=== PATIENT | female | born 2000 | race African-American/Black ===

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

== ENCOUNTER 2019-12-20 09:53 | Outpatient (CLI) | payer OTHER ==
--- NOTE | 2019-12-20 10:58 | ULT ---
OB ULTRASOUND: HISTORY: anatomy FINDINGS: A single live intrauterine gestation is seen with measurements corresponding to an estimated gestatio nal age of 21 weeks 3 daysand LUHTER at 04/28/2020. The estimated weight measures 402 g or 14 ounces (52% by Hadlock criteria). biometry: BPD: 5.22 cm, 21 weeks 6 days HC: 18.70 cm, 21 weeks 1 day AC: 16.26 cm, 20 weeks 3 days FL: 3.45 cm, 21 weeks 0 days heart rate: 140bpm Placenta: Anterior Placenta previa: No CARMELLA: 12.1cm Cervical length: 3.3cm A three-vessel cord, cord insertion, kidneys, urinary bladder, stomach, 4 chambered heart, late ral ventricles, cerebellum, spine, lips/nose, upper and lower extremities are visualized. No definite anomalies are seen. IMPRESSION: Single live intrauterine gestation of 21 weeks 3 daysestimated gestational age and LUTHER at 04/28/2020
== END 2019-12-20 09:54 | disposition home or self-care (01) ==
LOC: BICULT 09:53
PROVIDERS: ATTEND Family Medicine
DX: O09.892 Supervision of other high risk pregnancies, second trimester (principal); Z3A.21 21 weeks gestation of pregnancy
CPT/HCPCS: 76805

== ENCOUNTER 2020-04-08 14:51 | Inpatient (IN) | payer OTHER ==
--- NOTE | 2020-04-08 15:12 | PDOC.FPROB ---
FMR OB H&P: HPI - History of Present Illness Chief Complaint: elevated BP Indentification: 19F @ 36.5wga by LMP c/w 21.3wk sono History of Present Illness: Patient is a 19F @ 36.5wga by LMP c/w 21.3wk sono that presents from clinic for elevated BP. LUTHER 05/01/20 PCP: Monica Patient had a routine office visit at [facility] today for obstetric care. She was found to have a blood pressure of 139/93. She did not have s/sx of pre-e so she was sent home to re-check her BP at home. BP at home 147/91. Dr. Art was notified and asked her to come to the hospital for pre-e workup. She denies GONZALEZ, RUQ pain, abdominal pain, vision changes, dyspnea, chest pain, VD, VB, CTX, LOF. Endorses FM. Endorses minimal hand/feet swelling. Primary Care Physician: Lamar FMR OB H&P: Current - Care : 1 Para: 0 Gestational age: 36.5 Due date: 05/01/20 Dating Criteria: LMP c/w 21.3wk sono Course/Complications: Anemia of on oral iron 09/24/19: 10.4/32.4 02/17/20: 8.8/27.9 03/02/20: 9.4/28.6 04/02/20: 9.5/28.8 Depression -was on sertraline previously Seasonal allergies -was on cetirizine previously Mild intermittent asthma Obesity - OB Labs Blood type: O RH: positive Antibody Screen: negative HIV: negative RPR: negative HepBsAg: negative Rubella: immune Urine drug screen: positive (cannabinoids september 2019, repeat UDS neg) Gonorrhea: negative Chlamydia: negative 1 hour gtt: 95 GBS: unknown H&H: 9.5/28.8 - Anatomy Survey Anatomy survey: Performed at 21.3wga with no abnormalities seen. Anterior placenta. No placenta previa seen. - Additional Ultrasound Additional: 35wk growth sono for obesity in : Hadlock 57.1%, CARMELLA 17 FMR OB H&P: History - Past Medical History PMH: Depression Seasonal allergies Mild intermittent asthma Obesity - OB History OB History: Prior patient of Dr. Chappell, was transferred at 31.6wga. Has gained 8lbs since that time. - Surgical History Sx History: None - Social History Social History: Non-smoker No alcohol use +UDS for cannabinoids September 2019, repeat negative FMR OB H&P: Medications - Current Home Medications: Medication Instructions Recorded Confirmed Type Iron 1 tablet PO DAILY 04/08/20 04/08/20 History Vits96/Iron Fum/Folic 1 tablet PO DAILY 04/08/20 04/08/20 History [ Tablet] Allergies/Adverse Reactions: Allergies Allergy/AdvReac Type Severity Reaction Status Date / Time No Known Drug Allergies Allergy Verified 04/08/20 15:26 FMR OB H&P: ROS - Review of Systems General: denies: fever/chills, weight/appetite/sleep changes Eyes: denies: eye pain, vision changes ENT: denies: nasal congestion, rhinorrhea Cardiovascular: reports: edema (mild hands/feet). denies: chest pain, palpitation Respiratory: denies: cough, shortness of breath Gastrointestinal: denies: abdominal pain, diarrhea, constipation Genitourinary (Female): denies: incontinence, dysuria, vaginal discharge, vaginal pain, vaginal bleeding Musculoskeletal: denies: pain, stiffness, tenderness Neurologic: denies: numbness, syncope, seizures Integumentary: denies: itching, rash Breast: denies: lumps, bumps Endocrine: denies: cold intolerance, heat intolerance Hematologic/Lymphatic: denies: prolonged or excessive bleeding, enlarged lymph nodes FMR OB H&P: Vital Signs - Maternal Vital signs: 139/90 FMR OB H&P: Physical Exam - Physical Exam General: NAD, awake, alert and oriented HEENT: normocephalic and atraumatic, EOMI, MMM Neck: supple, FROM, trachea midline Chest: non-tender to palpation Breast: symmetric, non-tender Heart: RRR, normal S1/S2, other (trace edema BLE) General: CTAB, no respiratory distress Abdomen: soft, gravid, fundus(cm) Musculoskeletal: normal gait and station, pulses present, FROM in all four extremities Neurological: cranial nerves II through XII intact, sensation to pain,touch and proprioception grossly normal Skin: no rash, good tugor Lymphatic: no unusual bruising or bleeding, no purpura Psychiatric: intact recent and remote memory, good judgement and insight FMR OB H&P: A/P Disposition: Patient is a 19F @ 36.5wga by LMP c/w 21.3wk chi that presents as a triage from clinic for pre-eclampsia work up. #Elevate BP -had elevated BP in clinic and at home, 140s/90s without any severe pressures -trace edema BLE, no other pre-symptoms or signs -monitored BP while in triage, elevated pressures with one >160 but patient was laying on the BP cuff. Repeat BP was 157/97. Will continue to monitor BP for 4 hours. -pre-e labs: prot:creat 0.2, platelets 128 (139 on 04/02), AST/ALT and cr wnl. -FHT cat 1 #Anemia of on oral iron 09/24/19: 10.4/32.4 02/17/20: 8.8/27.9 03/02/20: 9.4/28.6 04/02/20: 9.5/28.8 -patient taking oral iron -PCP tried to [facility] iron infusion today, was unsuccessful. If patient stays overnight will davis for iron infusion otherwise will notify PCP to try again to schedule her in am #Depression -was on sertraline previously, not currently using -aware #Seasonal allergies -was on cetirizine previously, controlled without medication currently #Mild intermittent asthma -controlled, not using inhalers -will avoid hemabate during delivery #Obesity -aware Dispo: monitor BP for total of 4 hours. Communicate with PCP, Dr. Art, regarding status of iron infusion, and necessity of weekly mBPP/NST if discharged Discussion: Date/Time: 04/08/20 [id number] This H&P was discussed with [Twan] and [] who agree with the above documentation and plan. Signature: MD Teetee PGY-2
[2020-04-08 15:32] VITALS: BMI 39.2
[2020-04-08 16:29] LABS: Creatinine, Urine 381.91 mg/dL (47-110)
[2020-04-08 16:38] LABS: #Lymphocytes 0.9 thou/uL (1.20-3.40); #Monocytes 0.4 thou/uL (0.11-0.59); #Neutrophils 4.2 thou/uL (1.40-6.50); %Basophils 0.3 % (0.0-1.0); %Eosinophils 0.4 % (0.0-10.0); %Lymphocytes 16.2 % (28.0-48.0); %Monocytes 6.3 % (0.0-4.0); %Neutrophils 76.9 % (31.0-61.0); Hemoglobin 10.2 g/dL (12.0-16.0); Mean Corpuscular HGB CONC 32.7 g/dL (32.0-36.0); Mean Corpuscular Hemoglobin 28.5 pg (25.0-35.0); Mean Corpuscular Volume 86.9 fL (78.0-98.0); Mean Platelet Volume 9.7 fL (7.4-10.4); Platelet Count 128 thou/uL (130-400); RBC Distribution Width 13.9 % (11.5-14.5); Red Blood Cell (RBC) Count 3.58 mill/uL (4.00-5.20); White Blood Cell (WBC) Count 5.5 thou/uL (4.8-10.8)
[2020-04-08 17:03] LABS: ALT (SGPT) 12 U/L (8-55); AST (SGOT) 21 U/L (5-34); Albumin 3.2 g/dL (3.5-5.0); Alkaline Phosphatase 177 U/L (40-100); Anion Gap 13 mmol/L (10-20); BUN (Urea Nitrogen) 6 mg/dL (7.0-18.7); Bilirubin, Total 0.3 mg/dL (0.2-1.2); Calc. Creatinine Clearance 223 mL/min (70-130); Calcium 8.6 mg/dL (7.8-10.44); Carbon Dioxide 21 mmol/L (22-29); Chloride 106 mmol/L (98-107); Globulin 3.6 g/dL (2.4-3.5); Glucose 90 mg/dL (70-105); Potassium 3.8 mmol/L (3.5-5.1); Protein, Total 6.8 g/dL (6.0-8.3); Sodium 136 mmol/L (136-145); Uric Acid 4.9 mg/dL (2.6-6.0)
[2020-04-08] MEDS: hydrALAZINE 20 MG/ML VIAL ONE ×2 (17:55→18:37)
[2020-04-08] MEDS ORDERED: hydrALAZINE 20 MG/ML VIAL SLOW IVP PRN ×2 (17:55→18:11)
[2020-04-08] MEDS ORDERED: Promethazine HCl 25 MG/ML VIAL IM PRN (18:11)
[2020-04-08] MEDS ORDERED: Ondansetron PF 4 MG/2 ML Vial IVP PRN (18:11)
--- NOTE | 2020-04-08 18:24 | PDOC.BPN ---
<Ebonie Taylor - Last Filed: 04/08/20 18:55> - Brief Progress Note Encounter Date: 04/08/20 Encounter Time: 18:17 S: Pt seen at bedside after being paged about patient's severe range BPs. Her BP was 167/102 @ 1707 and 163/97 @ 1731. Hydralyzine 5mg given at 17:55. Patient denied CP/SOB, vision changes/scotomas, RUQ pain, N/V at this time. O: Vitals: 178/97, HR 104 @ 18:11 PE: General: NAD Heart: RRR, no m/r/g noted CTAB: clear to auscultation, no wheezes, rhonchi/rales noted Extremities: mild pitting edema noted A/P: Labs upon admission reviewed. Thrombocytopenia noted @ 128. ALT/AST wnl. Uric Acid 4.9, high normal. Urine protein/tire mechanic ratio was 0.196. Since spiked severe range BPs, will admit for observation overnight and continue to monitor BPs closely. BPP and growth u/s ordered. AM labs CBC, CMP, and uric acid ordered. 24 hour urine protein to begin collecting. GBS swab ordered as well. 10 mg IVP hydralyzine ordered now. Checking BP q15 minutes. Discussed plan with Dr. White and Dr. Bennett. <Janae White - Last Filed: 04/09/20 18:43> - Brief Progress Note Currently dx with gHTN. Due to GA of 36.5 wks not an indication for delivery. However, now noted to have severe range BP but only 1 hour apart. Treated. Will admit and obs. If continues with mag and induce due to gHTN with severe range BP. Discussed with NICU team, will hold steroids due to late state. Justin
[2020-04-08] MEDS ORDERED: hydrALAZINE 20 MG/ML VIAL SLOW IVP SCH (18:45)
--- NOTE | 2020-04-08 19:17 | ULT ---
Please see Limited OB ultrasound also obtained on 04/08/2020 for further details.
--- NOTE | 2020-04-08 19:17 | ULT ---
EXAM: Limited OB ultrasound Ultrasound biophysical profile COMPARISON: 12/20/2019 HISTORY: Positive . Severe range of blood pressures. Evaluate for growth. TECHNIQUE: Multiplanar grayscale and color Doppler transabdominal sonographic images are obtained. FINDINGS: There is a single intrauterine gestation in cephalic presentation. Cardiac Doppler demonstr ates heart tones with a heart rate of 135 beats per minute. The placenta is located anteriorly without evidence of placenta previa. There is a normal amount of amniotic fluid with an am niotic fluid index of 12.5 centimeters. The cervix is obscured due to shadowing from head. biometry measurements: BPD 9.35 cm -- 38 weeks HC 32.94 cm -- 37 weeks 3 days AC 32.69 cm -- 36 weeks 4 days FL 7.11 cm -- 36 weeks 3 days The estimated gestational age by ultrasound is 37 weeks 1 day with LUTHER on 04/28/2020. Gestational age by the last menstrual period is 36 weeks 5 days. The estimated weight by ultrasound is 3040 g (6 pounds, 11 ounces). This represents 58 percenti le for weight. There has been interval growth when compared to prior study on 12/20/2019. The anatomical structures were not evaluated on this examination. A score of 2 was obtained each for tone, breathing, movements, and amniotic fluid v olume. IMPRESSION: 1. Single intrauterine gestation in cephalic presentation with heart tones documented. Estimat ed gestational age by ultrasound is 37 weeks 1 day with LUTHER on 04/28/2020. 2. Estimated weight is 3040 g (6 pounds, 11 ounces). 3. Amniotic fluid index is 12.5 centimeters. 4. A total biophysical profile score of 8 out of 8 was obtained.
[2020-04-08] MEDS ORDERED: Magnesium Sulfate 20 gm/500 ml 20 GM/500 ML BAG ONE (19:51)
[2020-04-08] MEDS ORDERED: Lidocaine 1% (PF) 30 ML VIAL SC PRN (19:52)
[2020-04-08] MEDS ORDERED: NS / Oxytocin 40 units/1000ml 1,000 ML IV PRN ×2 (19:52→19:54)
[2020-04-08] MEDS ORDERED: Calcium Gluc 4.6 MEQ/10 ML (100 MG/ML) SLOW IVP PRN (19:53)
[2020-04-08] MEDS ORDERED: Labetalol HCl 100 MG/20 ML VIAL SLOW IVP SCH (20:00)
[2020-04-08] MEDS ORDERED: Magnesium Sulfate 20 GM/WATER 500 ML BAG IVPB SCH (20:00)
[2020-04-08] MEDS ORDERED: Penicillin G Potassium 5 MILL.UNITS in Sodium Chloride 0.9% 100 ML IVPB SCH (20:00)
[2020-04-08] MEDS ORDERED: Magnesium Sulfate 20 gm/500 ml 20 GM/500 ML BAG IVPB SCH (20:00)
[2020-04-08] MEDS ORDERED: NS w/ Oxytocin 30 units 500 ML IVPB SCH (20:02)
[2020-04-08] MEDS ORDERED: NS w/ Oxytocin 30 units 500 ML IVPB PRN (20:03)
--- NOTE | 2020-04-08 20:19 | PDOC.BPN ---
<Ebonie Taylor - Last Filed: 04/08/20 20:46> - Brief Progress Note Encounter Date: 04/08/20 Encounter Time: 20:18 S: Pt continues to have elevated BPs was paged ~19:50 that patient's BP was 167/91 and was c/o GONZALEZ and SOB. Now, after eating some food, these sxs have resolved. O: BP 177/85, HR 115 SVE c/th/h @ 20:10 A/P: As BPs continue to be in the severe range, will admit for induction of labor. Explanation of process and questions answered. -SVE c/th/h @ 20:10, will start with cytotec as induction agent, u/s reviewed, fetus is cephalic in presentation -magnesium started, will do q4H mag checks -GBS ppx started as patient as swabbed at clinic today and we will not know results -does desire epidural -labetalol 20mg ordered now, continue to monitor BPs closely -will stop 24H urine protein collection <Janae White - Last Filed: 04/09/20 18:49> - Brief Progress Note Admit. Start mag. Treat BP. Unfavorable cervix. Induce with miso. Reactive NST. US images reviewed. Appropriate EFW and CARMELLA. Cephalic. Anterior placenta. Justin
[2020-04-08] MEDS: Misoprostol 100 MCG TAB VAG SCH (20:31)
[2020-04-09] MEDS ORDERED: Labetalol HCl 100 MG/20 ML VIAL SLOW IVP SCH (00:45)
--- NOTE | 2020-04-09 00:59 | PDOC.BPN ---
<BrandonEbonie - Last Filed: 04/09/20 03:44> - Brief Progress Note Encounter Date: 04/09/20 Encounter Time: 00:59 S: Patient seen at bedside. States that she is feeling contractions now. Denies GONZALEZ, vision changes, CP/SOB, RUQ pain O: BP 153/69 HR 110 PE: General: NAD Heart: RRR, no m/r/g Lungs: CTAB Extremities: mild pitting edema persists, unchanged from prior exam Neuro: DTRs 2+ in lower extremities FHT: FHR 140s, moderate variability noted, accels noted, no ctx seen on strip but patient feeling them every 5-10 mins at the moment SVE: 03/30/-3 @ 00:47 A/P: -s/p 1 dose of cytotec @ 20:45 -two severe BPs noted in SBP 160-170 range in 4 hour time period -s/p 15 mg hydralyzine and 20mg labetalol -continue with magnesium -U/O 350 ml in 4 hours -will place another cytotec and will recheck in 4 hours -ordered another dose of labetalol 20mg IVP at this time Plan discussed with Dr. White and Dr. Bennett <Janae White - Last Filed: 04/09/20 19:44> - Brief Progress Note Continue current plan. Continue induction with miso. Treat BPs as needed. Consider oral labetolol if prn meds are continued again. Justin
[2020-04-09] MEDS: Misoprostol 100 MCG TAB VAG SCH ×3 (01:06→09:04)
--- NOTE | 2020-04-09 05:09 | PDOC.BPN ---
<BrandonEbonie - Last Filed: 04/09/20 05:33> - Brief Progress Note Encounter Date: 04/09/20 Encounter Time: 05:01 S: Patient seen at bedside. Denies GONZALEZ, vision changes, CP/SOB, RUQ pain O: BP 134/80 HR 108 PE: General: NAD Heart: RRR, no m/r/g Lungs: CTAB Extremities: mild pitting edema persists, unchanged from prior exam Neuro: DTRs 2+ in lower extremities FHT: FHR 140s, moderate variability noted, accels noted, no ctx seen on strip SVE: 03/30/-3 @ 00:47 SVE: 1.5/50/-3 @ 05:00 A/P: -s/p 1st dose of cytotec @ 20:45, 2nd dose of cytotec @ 0104 -no severe range BPs during 4 hour time period -s/p 15 mg hydralyzine and 40mg labetalol so far -continue with magnesium -U/O 375 ml in last 4 hours -will place another cytotec and will recheck in 4 hours Plan discussed with Dr. White and Dr. Bennett <Janae White - Last Filed: 04/09/20 20:12> - Brief Progress Note Cervix still unfavorable, continue miso. CAt 1 tracing. Patient tolerating well. Justin
[2020-04-09 07:21] LABS: SARS-CoV-2 PCR by NAA DETECTED (NotDetected)
[2020-04-09] MEDS ORDERED: FLU VACC QS2020-21(6MOS UP)/PF 60 MCG/0.5 ML SYRINGE IM ONE (09:00)
[2020-04-09] MEDS: Penicillin G 2.5 MILL.units 2.5 MILL.UNITS in Premix Bag 1 BAG IVPB SCH ×2 (09:03→13:18)
[2020-04-09] MEDS ORDERED: Labetalol HCl 100 MG/20 ML VIAL SLOW IVP PRN ×2 (09:54→17:57)
--- NOTE | 2020-04-09 09:59 | PDOC.LDPN ---
Labor & Delivery Progress Note - Subjective Subjective: comfortable - Objective Abnormal vital signs: elevated blood pressure, one severe range 162/101 General: NAD, resting FHT: category 1, variability present -: sIUP, mIOL for severe gHTN - 36.6 wga - on Mg for severe HTN - tx PRN severe range BP >160/110, one severe range pressure in past several hours - UOP, reflexes adequate, continue to monitor Mg check q4hr - last SVE /-2 per nursing @ 0905, cytotec #4 placed - continue FHT monitoring, cat 1 strip with intermittent periods decreased variability COVID positive Asymptomatic. Transferred to negative pressure room. Precautions initiated. Will recheck SVE in 4 hours from last SVE. windy ralph, DO, PGY-1 To be discussed with Dr. Arredondo.
[2020-04-09 10:37] LABS: ALT (SGPT) 12 U/L (8-55); AST (SGOT) 19 U/L (5-34); Alkaline Phosphatase 183 U/L (40-100); Anion Gap 14 mmol/L (10-20); BUN (Urea Nitrogen) 4 mg/dL (7.0-18.7); Bilirubin, Total 0.4 mg/dL (0.2-1.2); Calc. Creatinine Clearance 226 mL/min (70-130); Calcium 7.7 mg/dL (7.8-10.44); Carbon Dioxide 19 mmol/L (22-29); Chloride 105 mmol/L (98-107); Globulin 3.5 g/dL (2.4-3.5); Glucose 84 mg/dL (70-105); Potassium 3.9 mmol/L (3.5-5.1); Protein, Total 6.5 g/dL (6.0-8.3); Sodium 134 mmol/L (136-145)
[2020-04-09 10:46] LABS: Band 3 % (5-11); Hemoglobin 10.6 g/dL (12.0-16.0); Lymphocytes 18 % (28-48); MDiff Complete? YES; Mean Corpuscular HGB CONC 33.2 g/dL (32.0-36.0); Mean Corpuscular Hemoglobin 28.9 pg (25.0-35.0); Mean Corpuscular Volume 87.1 fL (78.0-98.0); Mean Platelet Volume 9.7 fL (7.4-10.4); Monocytes 11 % (0-4); Neutrophil 68 % (31-61); Platelet Count 150 thou/uL (130-400); Platelet Morphology Comment Appears Adequate; RBC Distribution Width 13.9 % (11.5-14.5); RBC Morphology Normal; Red Blood Cell (RBC) Count 3.68 mill/uL (4.00-5.20); White Blood Cell (WBC) Count 7.3 thou/uL (4.8-10.8)
[2020-04-09 10:53] LABS: HBSAg Index 0.47 S/CO (0-0.99); Hep B Surf Ag Non-Reactive S/CO (NonReactive)
[2020-04-09] MEDS ORDERED: Butorphanol Tartrate 1 MG/ML VIAL SLOW IVP PRN (12:13)
[2020-04-09] MEDS ORDERED: Butorphanol Tartrate 1 MG/ML VIAL SLOW IVP SCH (12:16)
[2020-04-09] MEDS ORDERED: Butorphanol Tartrate 1 MG/ML VIAL ONE (12:19)
--- NOTE | 2020-04-09 12:32 | PDOC.LDPN ---
Labor & Delivery Progress Note - Subjective Subjective: comfortable - Objective Abnormal vital signs: no additional severe range BPs in past 4 hours FHT: category 1 -: sIUP, mIOL for severe gHTN - 36.6 wga - on Mg for severe HTN - tx PRN severe range BP >160/110, one severe range pressure in past several hours - UOP, reflexes adequate, continue to monitor Mg check q4hr - SROM clear fluid @ 1200, SVE per nursing report /-2 - continue FHT monitoring, cat 1 strip with intermittent periods decreased variability COVID positive Asymptomatic. Transferred to negative pressure room. Precautions initiated. Will recheck SVE in 4 hours from last SVE. windy ralph DO, PGY-1 Addendum - Attending - Attending Attestation Date/Time: 04/09/20 [id number] I personally evaluated the patient and discussed the management with Dr. Ralph. I agree with the History, Examination, Assessment and Plan documented above with any addition or exceptions noted below. consider starting pit if favorable at next check. Balloon if not favorable.
[2020-04-09] MEDS ORDERED: Fentanyl 4 mcg/Bup 0.1% Cadd 100 ML ONE (13:48)
[2020-04-09] MEDS ORDERED: Ondansetron PF 4 MG/2 ML Vial IVP PRN ×2 (14:21→17:57)
[2020-04-09] MEDS ORDERED: Promethazine HCl 25 MG/ML VIAL IM PRN (14:21)
[2020-04-09] MEDS ORDERED: Acetaminophen 325 MG TAB PO PRN (14:21)
[2020-04-09] MEDS ORDERED: diphenhydrAMINE 50 MG/ML VIAL IVP PRN (14:21)
[2020-04-09] MEDS ORDERED: Naloxone HCl 0.4 mg/ml Vial IVP PRN ×2 (14:21)
[2020-04-09] MEDS ORDERED: ePHEDrine 50 MG/ML VIAL SLOW IVP PRN (14:21)
[2020-04-09] MEDS ORDERED: Lactated Ringer's 500 ML IV PRN (14:21)
[2020-04-09] MEDS ORDERED: Communication Order-Pharmacy FS SCH (14:30)
[2020-04-09] MEDS ORDERED: Fentanyl 4 mcg/Bupivacaine 0.1% Cassette 100 ML EPIDURAL SCH (14:30)
[2020-04-09] MEDS ORDERED: Lidocaine 1% (PF) 30 ML VIAL ONE (16:17)
--- NOTE | 2020-04-09 16:26 | PDOC.LDPN ---
Labor & Delivery Progress Note - Subjective Subjective: comfortable - Objective Vital signs reviewed and normal: yes (no severe BP. Good UOP) General: NAD Uterine fundus: non tender Dilation: 10 Effacement: 100% Station: -1 FHT: category 2 (brief run of recurrent lates for 5 ctx (resolved) minimal variability. ) Artesian contractions every: 3-5 min FSE placed: yes Resuscitative measures: maternal oxygen, maternal IV fluids, maternal position change -: lates resolved with position change. baby varies between moderate and minimal variability with increasing runs of minimal variability. She has had on episode of lates. on my exam baby was ROP. Discussed FHT findings with mother and FOB. Explained that it was reassuring that lates had resolved but if baby has reoccurance of this we may need to consider urgent pLTCS. they expressed understanding and all questions were answered to their satisfaction. Will attempt maternal position change to rotate baby. If baby looks worse, will begin active management of 2nd stage. I believe she has enough room in her pelvis to successfully have an and anticipate in the next 1-2 hours, provided infant continues to tolerate labor.
--- NOTE | 2020-04-09 17:33 | PDOC.OPDEL ---
OB Operative/Delivery Note Delivery Dr/Surgeon: Dr. Art, with Dr. Arredondo attending Pre-Delivery Diagnosis: active labor, non-reassuring tracing, other (gHTN with severe range pressures) Procedure/Post Delivery Dx: spontaneous vaginal delivery Weeks gestation: 36 (36.6) Anesthesia: epidural - Additional Findings/Plan Placenta delivered: spontaneous Repaired Obstetrical Laceration: 1st degree Estimated blood loss: 500 mL Compilations/Other Findings: Delivering Physician: Dr. Rubens DO Attending Dr. Maria Elena MD Procedure: Spontaneous Vaginal Delivery Anesthesia: epidural EBL: 500 ml Pre-op Diagnosis: 1. Pre-Term intrauterine active labor after mIOL for gHTN with severe features 2. Anemia of 3. gHTN with severe range pressures 4. Asymptomatic COVID-19 infection Post-op Diagnosis: 1. Pre-Term intrauterine , delivered 2. same as above Indications: A 19 y/o female ->1 presents after developing gHTN. mIOL indicated for severe range BP's in gHTN. Delivery Note: This is 20yo F ->1 @ 36.6 wks who delivered a viable F at 1651 on 04/09/20. Following an antepartum course requiring Mag infusion for gHTN with severe range pressures, a F was delivered over an intact perineum in the OP position. head was for a few pushes. Anterior Shoulder and then remainder of the body delivered. The head was held down and mouth and nares were bulb suctioned. Infant experienced an apnea episode after delivery with poor tone, Cord was clamped and she was transferred to warming table. received blow by oxygen and intermittent PPV resuscitation and began to cry spontaneously. Landscaping Specialist called in room and pulse ox was 83%. No further resuscitation needed. Apgars were 6/8/9 at 1/5/10 min of life. Cord blood collected and sent to lab. Placenta delivered intact in the Swan presentation with a 3 vessel cord noted. Fundal massage was performed and the fundus was firm. The cervix was inspected and found to be free of lacerations. There was a posterior vaginal wall 1st degree lac that was repaired with 3-0 vicryl in usual fashion with good hemostasis achieved. Infant went skin to skin in good condition for routine care. Patient tolerated delivery well and went to after routine recovery/care. ATTENDING ADDENDUM: I was present for and supervised the entire delivery. I agree with the above documentation. Post delivery plan: routine recovery (with COVID precuations for mother and infant)
--- NOTE | 2020-04-09 17:42 | PDOC.BPN ---
- Brief Progress Note not maintaining saturation per nursery staff and transferred to NICU for closer care.
[2020-04-09] MEDS ORDERED: Milk Of Magnesia 30 ML UDCUP PO PRN (17:57)
[2020-04-09] MEDS ORDERED: hydrALAZINE 20 MG/ML VIAL SLOW IVP PRN ×2 (17:57)
[2020-04-09] MEDS ORDERED: Calcium Gluconate 4.6 MEQ in Sodium Chloride 0.9% 100 ML IVPB PRN (17:57)
[2020-04-09] MEDS ORDERED: NS / Oxytocin 40 units/1000ml 1,000 ML IV SCH (17:57)
[2020-04-09] MEDS ORDERED: diphenhydrAMINE 25 MG CAP PO PRN (17:57)
[2020-04-09] MEDS ORDERED: Measles/Mumps/Rubella 10 MCG/0.5 ML VIAL SC ONE (17:57)
[2020-04-09] MEDS ORDERED: Preparation H Ointment 28 GM TUBE PR PRN (17:57)
[2020-04-09] MEDS ORDERED: Benzocaine-Menthol 82.5 ML CAN TOP PRN (17:57)
[2020-04-09] MEDS ORDERED: Bisacodyl 10 MG SUPP PR PRN (17:57)
[2020-04-09] MEDS ORDERED: Adacel (T-DAP) 0.5 ML SYRINGE IM ONE (17:57)
[2020-04-09] MEDS ORDERED: Lanolin Ointment 7 GM TUBE TOP PRN (17:57)
[2020-04-09] MEDS ORDERED: Varicella virus, LIVE 0.5 ML VIAL SC ONE (17:57)
[2020-04-09] MEDS: Docusate Calcium (SURFAK) 240 MG CAP PO SCH (21:06)
[2020-04-09] MEDS: Ibuprofen 800 MG TAB PO SCH (21:06)
--- NOTE | 2020-04-09 21:25 | PDOC.BPN ---
<Ebonie Taylor - Last Filed: 04/09/20 21:34> - Brief Progress Note Encounter Date: 04/09/20 Encounter Time: 21:25 S: Patient seen at bedside. Denies GONZALEZ, vision changes, CP/SOB at this time. O: BP 143/84 HR 113, Temp 98.4 F, BP max in last 24 hour was 148/87, no severe BPs PE: General: NAD Heart: RRR, no m/r/g Lungs: CTAB, no wheezes, crackles, rhonchi/rales noted Abdomen: 1+ edema noted on exam around umbilicus Extremities: 2+ pitting edema bilateral lower extremities Neuro: DTRs 2+ in lower extremities A/P: -U/O 380 ml in last 4 hours since delivery -VSS stable, no severe BPs -on PE seems to be edematous at this moment -will monitor u/o in next hour, if not >= 200 ml then will add dose of lasix IV -next Mg check in 4 hours Plan discussed with Dr. White and Dr. Bennett <Janae White - Last Filed: 04/10/20 08:16> - Brief Progress Note Monitor UOP in the night hour. If not improving consider Lasix. Justin
[2020-04-09] MEDS: Magnesium Sulfate 20 gm/500 ml 20 GM/500 ML BAG IVPB SCH (22:01)
[2020-04-09] MEDS ORDERED: Labetalol 100 MG TAB PO SCH (22:45)
--- NOTE | 2020-04-10 01:35 | PDOC.BPN ---
<Ebonie Taylor - Last Filed: 04/10/20 02:04> - Brief Progress Note Encounter Date: 04/10/20 Encounter Time: 01:35 S: Patient resting. Denies GONZALEZ, vision changes, CP/SOB at this time. O: BP 137/80 HR 93, Temp 98.4 F, BP max in last 24 hour was 164/93, ranging from 120-140, one SBP 152 @ 22:13 PE: General: NAD Heart: RRR, no m/r/g Lungs: CTAB, no wheezes, crackles, rhonchi/rales noted Extremities: 1+ pitting edema bilateral lower extremities Neuro: DTRs 2+ in lower extremities A/P: -U/O 645ml in last 4 hours -monitoring urine output closely with consideration of using lasix as necessary -next Mg check in 4 hours -PO labetalol 100mg BID started @ 22:45 <Janae White - Last Filed: 04/10/20 08:15> - Brief Progress Note Agree with above. UOP 100 to 200 per hour. Not as much diuresis as expected. Consider Lasix to help process edema. Increase oral antihypertensive as needed. Justin
--- NOTE | 2020-04-10 05:48 | PDOC.BPN ---
<Ebonie Taylor - Last Filed: 04/10/20 06:55> - Brief Progress Note Encounter Date: 04/10/20 Encounter Time: 05:48 S: Patient resting, sleeping at bedside. O: BP 135/83 HR 87, Temp 97.5 F, BP max in last 4 hours was 138/76, BPs ranging in SBPs 130s PE: General: NAD Heart: RRR, no m/r/g Lungs: CTAB, no wheezes, crackles, rhonchi/rales noted Extremities: 1+ pitting edema bilateral lower extremities Neuro: DTRs 2+ in lower extremities A/P: -U/O 695ml in last 4 hours -monitoring urine output closely with consideration of using lasix as necessary -next Mg check in 4 hours -PO labetalol 100mg BID started @ 22:45 <Janae White - Last Filed: 04/10/20 08:15> - Brief Progress Note BP improved. UOP stable. Monitor closely. No s/sx of mag tox. ABrayMD
[2020-04-10 06:27] LABS: Hemoglobin 9.7 g/dL (12.0-16.0)
[2020-04-10] MEDS: Magnesium Sulfate 20 gm/500 ml 20 GM/500 ML BAG IVPB SCH (07:26)
--- NOTE | 2020-04-10 08:35 | PDOC.PP ---
Post Progress Note Post Day #: 1 Subjective: Pt states pain well tolerated light lochia, tolerating some drink and food. in NICU on HFNC @ 40% FiO2, she is trying to pump for infant and states she is starting to produce colostrum on mag ggt, UOP last couple of hours has been >200, was ~100 mL an hour overnight. BP severe range overnight with PRN IV hydralazine given. PO intake tolerated: yes Flatus: yes Ambulation: no Vital Signs (12 hours) Temp Pulse Resp BP BP 04/10/20 06:33 83 160/101 H 04/10/20 04:00 97.5 F L 88 16 123/68 04/09/20 23:56 98.2 F 103 H 18 144/85 H 04/09/20 22:44 123 H 164/93 H Weight Weight 107.048 kg - Physical Examination General: NAD Respiratory: non-labored breathing Abdominal: + bowel sounds, lochia, no distention, appropriately TTP Extremities: negative homans (B) Skin: no rash Neurological: no gross focal deficits Psychiatric: A&Ox3, normal affect Result Diagrams: 04/10/20 06:02 04/09/20 10:03 Additional Labs: Post Labs Hep Bs Antigen Non-Reactive S/CO (NonReactive) 04/09/20 10:03 Blood Type O POSITIVE 04/09/20 10:03 - Assessment/Plan 19 y/o -> 1 delivered via on 04/09/20 @ 1651 a female that is in the NICU for not maintaining O2 saturation 1. PP day #1 - pain well controlled, light lochia - infant in NICU, breast pump at bedside 2. gHTN with severe - severe range pressures continued after delivery - pt on Mag for 24 hr PP and required PRN IV medications - Started on BID Labetalol 100 mg PO overnight. Will continue - will monitor for UOP and consider lasix if she does not start to diurese heavily. 3. Anemia of - continue PO iron for 6 weeks PP 4. MDD - stable 5. Mild intermittent asthma - has not required inhaler use, stable and aware. - PRN albuterol 7. COVID-19 positive, asymptomatic - precautions, monitor for symptoms. Dispo: stable, on mag for 24 hr PP, monitor BP, UOP, and Mag checks closely today Plan discussed with attending physician, Dr. Arredondo, who is in agreement with above stated plan. Addendum - Attending - Attending Attestation Date/Time: 04/10/20 1046 I personally evaluated the patient and discussed the management with Dr. Art. I agree with the History, Examination, Assessment and Plan documented above with any addition or exceptions noted below.
[2020-04-10] MEDS: Prenatal Vitamin 1 TAB PO SCH (09:07)
[2020-04-10] MEDS: Ferrous Sulfate 325 MG TAB PO SCH (09:07)
[2020-04-10] MEDS: Labetalol 100 MG TAB PO SCH ×2 (09:08→21:03)
[2020-04-10] MEDS: Docusate Calcium (SURFAK) 240 MG CAP PO SCH ×2 (09:08→21:03)
[2020-04-10] MEDS: Ibuprofen 800 MG TAB PO SCH ×2 (09:08→21:03)
--- NOTE | 2020-04-10 12:50 | PDOC.BPN ---
- Brief Progress Note Encounter Date: 04/10/20 Encounter Time: 12:30 S: Resting comfortably, feeling somewhat tired,otherwise no complaints. O: HR 90s, regular. Lungs CTAB. Reflexes 2+ bilaterally. 1-2+ pitting edema bilateral feet extending to mid-rowe. Abd soft & NT/ND. One severe range BP earlier this AM, has been 130s/80s since that time. UOP has been 200 cc/hr over past 4 hours. A/P: Repeat Mg check in 4 hrs. Continue Mg for 24h after delivery, consider extending to 36h if any severe range BPs. Continue labetalol 100mg BID. Continue to monitor UOP. If diuresis becomes inadequate, consider lasix. Luis Rehg, DO, PGY-1
--- NOTE | 2020-04-10 16:23 | PDOC.BPN ---
- Brief Progress Note Mg check S: Resting comfortably in bed, tired, but otherwise no complaints. O: HR 90s, regular. Lungs CTAB. Reflexes 2+ bilaterally. 1+ pitting edema bilateral feet extending to mid-rowe. Abd soft & NT/ND. One severe range BP earlier this AM that improved with adjustment of BP cuff, has been 130s/80s since that time. UOP has mostly been 200 cc/hr, with one hour 100cc/hr per nursing. A/P: Stop Mg around 5pm after 24hrs Will re-start Mg if she has more severe range BPs Continue labetalol 100mg BID. Continue to monitor UOP. If diuresis becomes inadequate, consider lasix. Case discussed with Dr. Macy Arredondo
--- NOTE | 2020-04-11 07:57 | PDOC.PP ---
Post Progress Note Post Day #: 2 Subjective: BP's reviewed in centricity, no severe range since yesterday afternoon, since then 151-126/80-90's Denies GONZALEZ or vision changes Light lochia had BM yesterday Vital Signs (12 hours) Pulse BP 04/10/20 21:03 92 144/78 H Weight Weight 107.048 kg - Physical Examination General: NAD Respiratory: non-labored breathing Abdominal: + bowel sounds, lochia, no distention, appropriately TTP Extremities: negative homans (B) Deviation from normal: trace pedal edema bilaterally Skin: no rash Neurological: no gross focal deficits Deviation from normal: 2+ BLE refelxes Psychiatric: A&Ox3, normal affect Result Diagrams: 04/10/20 06:02 04/09/20 10:03 Additional Labs: Post Labs Hep Bs Antigen Non-Reactive S/CO (NonReactive) 04/09/20 10:03 Blood Type O POSITIVE 04/09/20 10:03 - Assessment/Plan 19 y/o -> 1 delivered via on 04/09/20 @ 1651 a female infant that is in the NICU for not maintaining O2 saturation 1. PP day #2 - pain well controlled, light lochia - in NICU, breast pump at bedside 2. gHTN with severe - severe range pressures continued after delivery until 04/10. No more severe range overnight. - pt was on Mag for 24 hr PP, no off. and required PRN IV medications during this time. - Started on BID Labetalol 100 mg PO 2/ overnight. Will continue 3. Anemia of - continue PO iron for 6 weeks PP 4. MDD - stable 5. Mild intermittent asthma - has not required inhaler use, stable and aware. - PRN albuterol 7. COVID-19 positive, asymptomatic - precautions, monitor for symptoms. Dispo: stable, monitor BP, restart 24 hrs of mag if severe range BP's Plan discussed with attending physician, Dr. Jarrett, who is in agreement with above stated plan. Addendum - Attending - Attending Attestation Date/Time: 04/11/20 1016 I personally evaluated the patient and discussed the management with Dr. Art I agree with the History, Examination, Assessment and Plan documented above with any addition or exceptions noted below - Patient without complaints. Afebrile VSS. A/P: 1) PPD#2 s/p - continue routine care. 2) Gestational HTN - No severe range pressures since magnesium d/c'd; continue labetolol. 3) COVID (+) - asymptomatic
[2020-04-11] MEDS ORDERED: Labetalol 100 MG TAB PO SCH ×3 (09:00)
[2020-04-11] MEDS: Docusate Calcium (SURFAK) 240 MG CAP PO SCH ×2 (09:07→21:05)
[2020-04-11] MEDS: Prenatal Vitamin 1 TAB PO SCH (09:08)
[2020-04-11] MEDS: Ferrous Sulfate 325 MG TAB PO SCH (09:08)
[2020-04-11] MEDS: Ibuprofen 800 MG TAB PO SCH ×2 (09:16→21:05)
[2020-04-11] MEDS ORDERED: hydrALAZINE 20 MG/ML VIAL SLOW IVP PRN (17:28)
[2020-04-11] MEDS ORDERED: Labetalol HCl 100 MG/20 ML VIAL ONE (17:57)
[2020-04-11] MEDS ORDERED: Labetalol HCl 100 MG/20 ML VIAL SLOW IVP SCH (18:15)
--- NOTE | 2020-04-11 18:18 | PDOC.BPN ---
- Brief Progress Note Encounter Date: 04/11/20 Encounter Time: 18:00 RN paged: BP 190s/100s. hydralazine 5 mg IVP given and no change. Labetalol 20mg IVP given and BP decreased to SBP 160. Increased tonight's dose to labetalol 200mg PO BID by Dr. Boudreaux and to continue at this dose for tomorrow. Pt had mild headache so Tylenol given with some improvement. No RUQ tenderness on exam, DTRs 1+ in UEs and LEs.
[2020-04-11] MEDS: Labetalol 100 MG TAB PO SCH (21:04)
[2020-04-12] MEDS: Labetalol HCl 100 MG/20 ML VIAL SLOW IVP PRN ×3 (00:29→19:55)
--- NOTE | 2020-04-12 06:30 | PDOC.PP ---
Post Progress Note Post Day #: 3 Subjective: Overnight, patient with severe range BPs and requiring IV PRN medications. Patient resting comfortably this morning. She denies any headache, NVD, chest pain, SOB, abd pain, vision changes. Reports mild LE swelling. She is voiding normally. Has had a BM. Ambulating normally. Tolerating PO. PO intake tolerated: yes Flatus: yes Ambulation: yes Vital Signs (12 hours) Pulse BP 04/12/20 00:29 72 163/88 H 04/11/20 21:04 85 151/82 H 04/11/20 18:51 88 196/106 H Weight Weight 107.048 kg - Physical Examination General: NAD Cardiovascular: no m/r/g, RRR Respiratory: clear to auscultation bilaterally, non-labored breathing Abdominal: + bowel sounds, lochia (minimal, less than period), no distention, appropriately TTP Neurological: no gross focal deficits Psychiatric: A&Ox3, normal affect Result Diagrams: 04/10/20 06:02 04/09/20 10:03 Additional Labs: Post Labs Hep Bs Antigen Non-Reactive S/CO (NonReactive) 04/09/20 10:03 Blood Type O POSITIVE 04/09/20 10:03 - Assessment/Plan 19 y/o -> 1 delivered via on 04/09/20 @ 1651 a female that is in the NICU for not maintaining O2 saturation 1. PP day #3 - Pain well controlled with ibuprofen and tylenol, light lochia - Ambulating, voiding, tolerating PO and has had BM - Infant in NICU, breast pump at bedside 2. gHTN with severe - Severe range pressures have continued ranging 151-196/82-106 - Pt was on Mag for 24 hr PP, now off. - Started on BID Labetalol 100 mg PO 04/09 and now increased to 200 mg BID on 04/11. Will continue. - Continue to monitor BPs closely 3. Anemia of - Continue PO iron for 6 weeks PP 4. MDD - Stable 5. Mild intermittent asthma - Has not required inhaler use, stable and aware. - PRN albuterol 7. COVID-19 positive, asymptomatic - Precautions, monitor for symptoms. Dispo: stable, monitor BP Plan discussed with attending physician, Dr. Jarrett, who is in agreement with above stated plan. Addendum - Attending - Attending Attestation Date/Time: 04/12/20 1876 I personally evaluated the patient and discussed the management with Dr. Trent I agree with the History, Examination, Assessment and Plan documented above with any addition or exceptions noted below - Patient without complaints. Denies GONZALEZ. Afebrile VSS. A/P: 1) PPD#3 s/p - continue routine care. 2) Gestational HTN with severe range BP- still with occasional elevated BP in severe range. Labetolol increased last night. Continue to monitor and if BP remain high will increase labetolol to TID 2) COVID (+) - asymptomatic
[2020-04-12] MEDS: Labetalol 100 MG TAB PO SCH (09:07)
[2020-04-12] MEDS: Prenatal Vitamin 1 TAB PO SCH (09:07)
[2020-04-12] MEDS: Docusate Calcium (SURFAK) 240 MG CAP PO SCH ×2 (09:07→21:30)
[2020-04-12] MEDS: Ferrous Sulfate 325 MG TAB PO SCH ×3 (09:07→17:18)
[2020-04-12] MEDS: Ibuprofen 800 MG TAB PO SCH ×3 (14:21→21:30)
[2020-04-12 17:21] VITALS: TEMP 97.7
[2020-04-12] MEDS ORDERED: Labetalol 100 MG TAB PO SCH ×3 (17:45→21:45)
[2020-04-12] MEDS ORDERED: hydrALAZINE 20 MG/ML VIAL ONE (18:41)
[2020-04-12] MEDS ORDERED: hydrALAZINE 20 MG/ML VIAL SLOW IVP PRN (18:47)
[2020-04-12 21:31] VITALS: BP 162/93
--- NOTE | 2020-04-13 06:26 | PDOC.PP ---
Post Progress Note Post Day #: 4 Subjective: Pt had several severe range BP's yesterday afternoon, Labetalol increased to 200 mg and then TID yesterday. Continued severe range BP's overnight and this AM. Denies GONZALEZ, visual changes, abd pain states LE swelling has improved much from yesterday, after leaving legs elevated overnight. c/o foot swelling B/L. starting to produce more colostrum with breast pump. in NICU on 21% FiO2, improving. PO intake tolerated: yes Flatus: yes Ambulation: yes Vital Signs (12 hours) Pulse BP 04/13/20 05:59 93 162/93 H 04/12/20 21:30 93 162/93 H 04/12/20 19:55 92 163/93 H 04/12/20 18:48 72 165/89 H Weight Weight 107.048 kg - Physical Examination General: NAD Respiratory: non-labored breathing Abdominal: lochia, no distention, appropriately TTP Extremities: negative homans (B) Skin: no rash Neurological: no gross focal deficits Psychiatric: A&Ox3, normal affect Result Diagrams: 04/10/20 06:02 04/09/20 10:03 Additional Labs: Post Labs Hep Bs Antigen Non-Reactive S/CO (NonReactive) 04/09/20 10:03 Blood Type O POSITIVE 04/09/20 10:03 (1) Severe hypertension affecting in third trimester Code(s): O16.3 - UNSPECIFIED MATERNAL HYPERTENSION, THIRD TRIMESTER Status: Acute (2) Gestational HTN Code(s): O13.9 - GESTATIONAL HTN W/O SIGNIFICANT PROTEINURIA, UNSP TRIMESTER Status: Acute (3) (spontaneous vaginal delivery) Code(s): O80 - ENCOUNTER FOR FULL-TERM UNCOMPLICATED DELIVERY Status: Acute - Assessment/Plan 19 y/o -> 1 delivered via on 04/09/20 @ 1651 a female infant that is in the NICU for not maintaining O2 saturation, after being on Mag for severe BP's with gHTN. 1. PP day #4 - Pain well controlled with ibuprofen and tylenol, light lochia - Ambulating, voiding, tolerating PO and has had BM - Infant in NICU, breast pump at bedside 2. gHTN with severe BP's - Severe range pressures have continued overnight, with IV hydralazine and labetalol given - Pt was on Mag for 24 hr PP, now off. - Started on BID Labetalol 100 mg PO 04/09 and increased to 200 mg BID on 04/11, 200 mg TID on 04/12. will continue. - Started 30 mg daily Procardia XL 04/13. will continue - Continue to monitor BPs closely 3. Anemia of - Continue PO iron for 6 weeks PP 4. MDD - Stable 5. Mild intermittent asthma - Has not required inhaler use, stable and aware. - PRN albuterol 7. COVID-19 positive, asymptomatic - Precautions, monitor for symptoms. Dispo: stable, monitor BP. transfer to [facility] as [facility] is moving locations today 04/13. Plan discussed with attending physician, Dr. Jarrett, who is in agreement with above stated plan Addendum - Attending - Attending Attestation Date/Time: 04/13/20 1187 I personally evaluated the patient and discussed the management with Dr. Art I agree with the History, Examination, Assessment and Plan documented above with any addition or exceptions noted below - Patient denies complaints. Denies GONZALEZ. Afebrile VSS. A/P: 1) PPD#4 S/P - BP still elevated. Will add procardia XL 30 mg to regimen; continue labetolol. Stable for trsnfer to [facility]
[2020-04-13] MEDS ORDERED: Furosemide 20 MG/2 ML VIAL SLOW IVP SCH (07:30)
[2020-04-13] MEDS: Prenatal Vitamin 1 TAB PO SCH (08:22)
[2020-04-13] MEDS: Ferrous Sulfate 325 MG TAB PO SCH (08:22)
[2020-04-13] MEDS: Docusate Calcium (SURFAK) 240 MG CAP PO SCH (08:22)
--- NOTE | 2020-04-13 08:48 | PDOC.DS.DS ---
Provider Date of Admission: 04/08/20 22:21 Date of Discharge: 04/13/20 (tranfers to [facility] ) Admitting Provider: Janae White MD Primary Care Physician: Lamar Hollis Hospital Course: Pt was admitted for gHTN and workup for Pre-E. Pre-E labs neg. Severe range BP insetting of gHTN, mIOL. Mag ggt started on continued 24 hr PP on 04/10. on 04/09/20 @ 36.6 weeks gestation \ in NICU for not maintaining O2 saturations after delivery. Apgars . QBL 500 mL continued severe range BP's. Pt up to 200 mg labetalol TID. and started nifedipione XL 30 mg on 04/13. Transfer to [facility], as [facility] transferring unit, for continued BP monitoring since still having severe range BP's Pt COVID-19 positive and asymptomatic. continue covid precautions until 04/18/20. Lab Results: 04/10/20 06:02 04/09/20 10:03 Vitals: Vital Signs (12 hours) Pulse BP 04/13/20 08:22 93 162/93 H 04/13/20 05:59 93 162/93 H 04/12/20 21:30 93 162/93 H Weight Weight 107.048 kg Physical Exam: The patient was seen and examined on the day of discharge. Problem (1) Severe hypertension affecting in third trimester Code(s): O16.3 - UNSPECIFIED MATERNAL HYPERTENSION, THIRD TRIMESTER Status: Acute (2) Gestational HTN Code(s): O13.9 - GESTATIONAL HTN W/O SIGNIFICANT PROTEINURIA, UNSP TRIMESTER Status: Acute (3) (spontaneous vaginal delivery) Code(s): O80 - ENCOUNTER FOR FULL-TERM UNCOMPLICATED DELIVERY Status: Acute Plan Prescriptions: Ibuprofen [Motrin] 800 mg PO Q8HR #15 tab Home Medications: Medication Instructions Recorded Confirmed Type Iron 1 tablet PO DAILY 04/08/20 04/08/20 History Vits96/Iron Fum/Folic 1 tablet PO DAILY 04/08/20 04/08/20 History [ Tablet] Acetaminophen [Tylenol Regular 650 mg PO Q4H PRN tab 04/11/20 Rx Strength] Ibuprofen [Motrin] 800 mg PO Q8HR #15 tab 04/11/20 Rx Furosemide [Lasix] 20 mg SLOW IVP NOW vial 04/13/20 Rx Labetalol HCl [Normodyne] 20 mg SLOW IVP Q10MIN PRN vial 04/13/20 Rx Labetalol [Normodyne] 200 mg PO TID tab 04/13/20 Rx hydrALAZINE [Apresoline] 10 mg SLOW IVP Q4H PRN vial 04/13/20 Rx Allergies: No Known Drug Allergies Allergy (Verified 04/08/20 15:26) Activity:: Other (6 weeks pelvic rest ) Nourishment:: Regular Diet Therapies:: Not Applicable Equipment/Supplies:: Not Applicable IV Therapy:: Not Applicable Referrals: Constanza Art DO [Family Practice Resident] - 3 Days Disposition: OTHER HOSPITAL [facility] [place] MEASURES:: N/A Did you prescribe antithrombotic therapy?: No Specify reason for no DC antithrombotic therapy: Treatment not indicated Did you prescribe anticoagulant for A Fib/Flutter?: No Specify reason for no DC anticoagulant: Treatment not indicated Did you prescribe a statin medication?: No Specify reason for no DC statin medication: Treatment not indicated
[2020-04-13] MEDS ORDERED: Labetalol 100 MG TAB PO SCH ×2 (09:00)
[2020-04-13] MEDS ORDERED: NIFEdipine XL 30 MG TAB PO SCH (09:00)
== END 2020-04-13 11:24 | disposition short-term general hospital (02) | DRG 805 ==
LOC: L&D/OP 14:51 → L&D 22:21
PROVIDERS: ADMIT Student in an Organized Health Care Education/Training Program; ATTEND Family Medicine
PROC: 8E0ZXY6 Isolation (ICD-10-PCS; 2020-04-08)
PROC: 3E0P7VZ Introduction of Hormone into Female Reproductive, Via Natural or Artificial Opening (ICD-10-PCS; 2020-04-08)
PROC: 10E0XZZ Delivery of Products of Conception, External Approach (ICD-10-PCS; principal; 2020-04-09)
PROC: 0HQ9XZZ Repair Perineum Skin, External Approach (ICD-10-PCS; 2020-04-09)
PROC: 4A1HXCZ Monitoring of Products of Conception, Cardiac Rate, External Approach (ICD-10-PCS; 2020-04-09)
DX: O13.4 Gestational [pregnancy-induced] hypertension without significant proteinuria, complicating childbirth (principal); U07.1 COVID-19; Z37.0 Single live birth; O34.33 Maternal care for cervical incompetence, third trimester; O98.52 Other viral diseases complicating childbirth; O99.12 Other diseases of the blood and blood-forming organs and certain disorders involving the immune mechanism complicating childbirth; O60.14X0 Preterm labor third trimester with preterm delivery third trimester, not applicable or unspecified; O99.344 Other mental disorders complicating childbirth; F32.9 Major depressive disorder, single episode, unspecified; O99.02 Anemia complicating childbirth; D64.9 Anemia, unspecified; O99.52 Diseases of the respiratory system complicating childbirth; O99.214 Obesity complicating childbirth; E66.9 Obesity, unspecified; D69.6 Thrombocytopenia, unspecified; J45.20 Mild intermittent asthma, uncomplicated; O70.0 First degree perineal laceration during delivery; O76 Abnormality in fetal heart rate and rhythm complicating labor and delivery; Z3A.36 36 weeks gestation of pregnancy; Z23 Encounter for immunization
CPT/HCPCS: 36415; 51702; 76815; 76819; 80053; 82570; 83735; 84156; 84550; 85007; 85014; 85018; 85025; 85027; 86850; 86900; 86901; 87340; 87635; 88307; 99285; J0360; J1940; J2540; J3475; J3490; U0003; U0005

== ENCOUNTER 2020-08-21 18:36 | Emergency (ER) | payer OTHER ==
[2020-08-22 12:41] LABS: SARS-CoV-2 PCR by NAA Not Detected (NotDetected)
== END 2020-08-21 19:19 | disposition home or self-care (01) ==
LOC: ERS 18:36
DX: J06.9 Acute upper respiratory infection, unspecified (principal); Z20.822 Contact with and (suspected) exposure to COVID-19
CPT/HCPCS: 99283; U0003; U0005

== ENCOUNTER 2021-01-29 19:08 | Emergency (ER) | payer OTHER | END 2021-01-29 19:49 | disposition home or self-care (01) | LOC: ERS 19:08 | DX: S16.1XXA Strain of muscle, fascia and tendon at neck level, initial encounter (principal); V58.5XXA Driver of pick-up truck or van injured in noncollision transport accident in traffic accident, initial encounter; W22.10XA Striking against or struck by unspecified automobile airbag, initial encounter | CPT/HCPCS: 99284 ==

== ENCOUNTER 2021-08-06 12:13 | Emergency (ER) | payer OTHER ==
[2021-08-06 13:33] LABS: Bilirubin Negative (Negative); Blood, Urine Negative (Negative); Clarity Clear (Clear); Glucose, Urine (Dipstick) Normal (Negative); Ketone, Urine Negative (Negative); Leukocyte Negative Leu/uL (Negative); Nitrite Negative (Negative); Protein, Urine (Dipstick) 10 mg/dL (Neg-Trace); Specific Gravity, Urine 1.033 (1.002-1.036); pH, Urine 6.5 (5.0-9.0)
[2021-08-06 13:35] LABS: Pregnancy Test - Urine (BHCG) Negative (Negative); Specific Gravity 1.033 (1.002-1.036)
[2021-08-06 13:36] LABS: Pregu Control Background? CLEAR/WHITE (CLR/WHITE); Pregu Control Bar Appear? YES (CONTROL BAR)
[2021-08-07 20:16] LABS: Chlamydia by PCR Not Detected (NotDetected); GC by PCR Not Detected (NotDetected)
== END 2021-08-06 13:56 | disposition home or self-care (01) ==
LOC: ERS 12:13
DX: Z20.2 Contact with and (suspected) exposure to infections with a predominantly sexual mode of transmission (principal); F17.290 Nicotine dependence, other tobacco product, uncomplicated
CPT/HCPCS: 81003; 81025; 87480; 87491; 87510; 87591; 87660; 96372; 99283

== ENCOUNTER 2024-04-29 09:58 | Emergency (ER) | payer OTHER ==
[2024-04-29] MEDS ORDERED: Dexamethasone 10 MG/ML VIAL ONE (10:32)
[2024-04-29] MEDS ORDERED: Ketorolac Tromethamine 30 MG (1 mL) VIAL ONE (10:35)
== END 2024-04-29 12:00 | disposition home or self-care (01) ==
LOC: ERS 09:58
DX: J06.9 Acute upper respiratory infection, unspecified (principal); F17.290 Nicotine dependence, other tobacco product, uncomplicated
CPT/HCPCS: 87081; 87428; 87430; 96372; 99283; J1100; J1885